=== PATIENT | female | born 2000 | race Caucasian/White ===

== ENCOUNTER 2022-11-01 21:46 | Emergency (ER) | payer MEDICAID ==
[2022-11-01 21:51] VITALS: BP_SYST 110
[2022-11-01] MEDS ORDERED: ALBUTEROL SULFATE 0.083% 2.5 MG/3 ML VIAL.NEB INH ONE (22:30)
[2022-11-01 23:50] LABS: BASOPHILS % (AUTO) 0.6 % (0.0-2.0); EOSINOPHILS # (AUTO) 0.1 K/uL (0.0-0.4); EOSINOPHILS % (AUTO) 1.6 % (0.0-4.0); HEMATOCRIT 35.5 % (36-48); HEMOGLOBIN 11.6 g/dL (12.0-16.0); LYMPHOCYTES # (AUTO) 1.5 K/uL (1.0-5.5); LYMPHOCYTES % (AUTO) 27.8 % (20.5-51.5); MEAN CORPUSCULAR HEMOGLOBIN 26 pg (27-31); MEAN CORPUSCULAR HGB CONC 33 % (32-36); MEAN CORPUSCULAR VOLUME 80 fL (79.0-98.0); MONOCYTES # (AUTO) 0.6 K/uL (0.0-1.0); MONOCYTES % (AUTO) 10.1 % (1.7-9.3); NEUTROPHILS # (AUTO) 3.3 K/uL (1.8-7.7); NEUTROPHILS % (AUTO) 59.9 % (40.0-70.0); PLATELET COUNT (AUTO) 215 K/uL (130-430); RED BLOOD CELL COUNT(AUTO) 4.43 MIL/uL (4.2-6.2); RED CELL DISTRIBUTION WIDTH 15.7 % (9.0-15.0); WHITE BLOOD COUNT (AUTO) 5.5 K/uL (4.8-10.8)
[2022-11-02] LABS: BILIRUBIN,URINE NEGATIVE (NEGATIVE); BLOOD, URINE NEGATIVE (NEGATIVE); COLOR,URINE YELLOW (YELLOW); GLUCOSE,URINE NEGATIVE (NEGATIVE); KETONES,URINE NEGATIVE (NEGATIVE); LEUKOCYTE ESTERASE ,URINE TRACE (NEGATIVE); NITRITE, URINE NEGATIVE (NEGATIVE); PH,URINE 7.5 (5.0-8.0); PROTEIN URINE NEGATIVE (NEGATIVE); UROBILINOGEN,URINE 0.2 (0.2-1.0)
[2022-11-02 00:02] LABS: CLARITY/URINE HAZY (CLEAR)
[2022-11-02 00:19] LABS: ANION GAP 11 (5-15); CALCIUM 8.9 mg/dL (8.4-11.0); CHLORIDE 103 mmol/L (98-107); CREATININE 0.77 mg/dL (0.55-1.30); GLUCOSE 113 mg/dL (70-99); UREA NITROGEN, BLOOD 9 mg/dL (8-21)
[2022-11-02 00:19] LABS: BACTERIA,URINE None Seen /HPF (None Seen); RBC,URINE 0-3 /HPF (0-3)
[2022-11-02 00:21] LABS: GFR AFRICAN AMERICAN 121 mL/min (>90)
[2022-11-02 00:26] LABS: ALANINE AMINOTRANSFERASE 39 U/L (12-78); ALBUMIN 3.7 g/dL (3.4-4.8); ASPARTATE AMINOTRANSFERASE 20 U/L (10-37); TOTAL BILIRUBIN 0.2 mg/dL (0.0-1.0)
[2022-11-02] MEDS ORDERED: VIT1CAPS PO (00:35)
[2022-11-02] MEDS ORDERED: ZINC100T2 PO (00:35)
[2022-11-02] MEDS ORDERED: DEC4 PO (00:35)
[2022-11-02] MEDS ORDERED: VITD2000 PO (00:35)
[2022-11-02] MEDS ORDERED: ALBMDI INH (00:36)
[2022-11-02 00:45] VITALS: BP_SYST 108
== END 2022-11-02 00:45 | disposition home or self-care (01) ==
LOC: SED 21:46
DX: U07.1 COVID-19 (principal); R06.02 Shortness of breath; Z79.899 Other long term (current) drug therapy
CPT/HCPCS: 80053; 81000; 85025; 85379; 87040; 84484; 36415; 93005; 71045; 94640; 99285; 87804 ×2; 87426; J7613

== ENCOUNTER 2023-05-08 12:46 | Emergency (ER) | payer OTHER, MEDICAID ==
[~2023-05-08] VITALS: Ht 160 cm; Wt 99.8 kg
[~2023-05-08 12:46] MED LIST: ALBMDI INH; DEC4 PO; VIT1CAPS PO; VITD2000 PO; ZINC100T2 PO
[2023-05-08 13:08] VITALS: BP_SYST 131; PULSE 88; RESP 20; TEMP 98; O2SAT 100
[2023-05-08] MEDS ORDERED: IBUP-1971 PO (13:51)
[2023-05-08 15:27] VITALS: BP_SYST 131; PULSE 88; RESP 20; TEMP 98; O2SAT 100
== END 2023-05-08 15:28 | disposition home or self-care (01) ==
LOC: SED 12:46
DX: S16.1XXA Strain of muscle, fascia and tendon at neck level, initial encounter (principal); S39.012A Strain of muscle, fascia and tendon of lower back, initial encounter; Z79.899 Other long term (current) drug therapy; V89.2XXA Person injured in unspecified motor-vehicle accident, traffic, initial encounter; Y93.89 Activity, other specified; Y92.89 Other specified places as the place of occurrence of the external cause; Y99.8 Other external cause status
CPT/HCPCS: 99282